=== PATIENT | male | born 1965 | race Caucasian/White ===

== ENCOUNTER 2016-06-22 19:55 | Emergency (ER) | payer MEDICARE, MEDICAID ==
[2016-06-22 20:01] VITALS: BP 154/72; PULSE 86; TEMP 97.7
[2016-06-22 20:12] VITALS: BMI 23.5
--- NOTE | 2016-06-22 20:15 | EDPRACDOC ---
- General Information Chief Complaint: Back Pain Stated Complaint: FELL C/O LT LOWER BACK PAIN SCHEDULED MRI TOMORROW Time Seen by Provider: 06/22/16 20:07 Information Source: Patient Mode Of Arrival: Car Home Medications: Home Medications Alprazolam [Xanax] 1 mg PO TID 08/30/15 Fluticasone/Vilanterol [Breo Ellipta 100-25 Mcg INH] 1 each IH DAILY 08/30/15 Roflumilast [Daliresp] 500 mcg PO DAILY 08/30/15 Umeclidinium Andrew [Incruse Ellipta] 62.5 mcg IH DAILY 08/30/15 Albuterol Sulfate [Ventolin Hfa] 1 - 2 puff INH Q4-6H PRN 08/31/15 Oxycodone HCl/Acetaminophen [Percocet 10-325 mg Tablet] 1 each PO .5 TIMES A DAY 08/31/15 Amoxicillin/Potassium Clav [Augmentin 875-125 Tablet] 1 each PO BID 09/20/15 Diazepam [Valium] 5 mg PO TID PRN #15 tablet 06/22/16 Prednisone [Deltasone, Orasone] 20 mg PO DAILY #20 tab 06/22/16 Allergies/Adverse Reactions: Allergies Allergy/AdvReac Type Severity Reaction Status Date / Time No Known Allergies Allergy Verified 08/30/15 23:40 - 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 Denies abd pain, n/v, loss of control bowel or bladder, leg weakness, perineum numbness. States tingling feeling in leg. Pain Location: Reports: Lumbar Pain Radiates To: Reports: Thigh, Buttock, Calf, Foot Pain Caused By: Reports: Spontaneous Circumstances: Reports: Unknown Relevant History: Reports: Chronic back pain Pain Severity: Reports: Moderate, Severe Pain Quality: Reports: Sharp, Stabbing Worsened By: Reports: Movement, Walking Associated Signs and Symptoms: Reports: None ED Past Medical History - History Reviewed Yes Nurses notes reviewed and agree except as marked - Patient Medical History Neurological History: Denies: Migraine Cardiac History: Reports: Hypertension, Stress Test (negative dobutamine stress test Jun 2014, EF 65%), Syncope Respiratory History: Reports: Asthma, COPD, Pneumonia, Emphysema Musculoskeletal History: Reports: Arthritis (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 Rotator cuff tear.), Osteoarthritis Psychological History: Reports: Anxiety (DUE TO BREATHING ), Substance Use Disorder (heavy consumption of narcotic analgesics for chronic pain disorder). Denies: Depression Systemic History: Reports: Diabetes. Denies: Cancer, Anemia, HIV, Lupus Surgical History: Reports: Other (Cervical spine surgery with fusion of C3-4 and also at C5. Elbow surgery.) - Family Medical History Denies: Hypertension, Diabetes, Cancer, Stroke, Cardiac Disorders - Social Medical History Smoking Status: Heavy tobacco smoker (5 or more cigarettes/day or daily pipe/ cigar) Social History: Reports: Substance Use Disorder (heavy consumption of narcotic analgesics for chronic pain disorder) ETOH: None EDM Review of Systems - Review of Systems Constitutional: No Symptoms Reported. negative: Fever, Chills, Weakness, Fatigue, Loss of Appetite Respiratory: No Symptoms Reported. negative: Cough, Brassy Cough, Barky Cough, Shortness of Breath, Wheezing, Hemoptysis Cardiovascular: No Symptoms Reported. negative: Chest Pain, Palpitations, Syncope, Edema, Orthopnea, PND, Skin Mottling, Cyanosis Gastrointestinal: No Symptoms Reported. negative: Pain, Constipation, Nausea, Vomiting, Diarrhea, Melena, Formula Intolerance Genitourinary: No Symptoms Reported. negative: Dysuria, Hematuria, Frequency, Discharge, Bleeding, Testicular Pain, Neurological: No Symptoms Reported. negative: Headache, Dizziness, Seizure, Numbness, Weakness, Speech Difficulty, Gait Difficulty Musculoskeletal: Back, Foot, Hip, Knee, Leg Integumentary: No Symptoms Reported. negative: Itching, Rash, Bruising, Wound Allergic/Immunologic: No Symptoms Reported. negative: Hives, Itching Hematologic: No Symptoms Reported. negative: Lymphadenopathy, Easy Bruising, Easy Bleeding Psychiatric: No Symptoms Reported. negative: Anxiety, Depression, Hallucinations, Insomnia, Suicidal - Physical Exam Constitutional: Alert Oriented to: Time, Person, Place Last recorded Vital Signs: Last Vital Signs Temp 97.7 F 06/22/16 20:11 Pulse 86 06/22/16 20:11 Resp 20 06/22/16 20:11 BP 154/72 06/22/16 20:11 Pulse Ox 92 06/22/16 20:11 Oxygen Pulse Oxygen Saturation 92 O2 Device Room Air Oxygen Flow Rate Fraction of Inspired Oxygen ( FIO2) - HEENT Head: Normal ( normocephalic) Neck: Normal (FROM, trachea at midline) - Respiratory/Cardiovascular Respiratory: Normal - CTA (BBS clear to auscultation without adventitious sounds ) Cardiovascular: Normal (RRR without murmur, gallop or rub) - GI Auscultation: Normal (NABS) Palpation: Normal (Soft,No rebound or guarding, non distended) Tenderness: Non tender Galvin's Sign: Negative - Musculoskeletal Back: Lumbar TTP Extremities: Normal (Normal tone, Pulses 2+ No cyanosis or edema, FROM) - Integumentary Skin: Normal, Warm, Dry Lymphatics: Normal (no adenopathy) - Neurologic Memory Impaired: Normal Motor Function: Normal (Normal tone, Pulses 2+ No cyanosis or edema, FROM) Mood Description: Normal Perception: Normal ED Back Exam - Neurologic Motor Deficit: None (strength 5/5, sensation nl) Reflexes: Normal (CN II-X11 intact) - Musculoskeletal Cervical: Normal Thoracic: Normal Lumbar: Tender Midline: Tender Paraspinous: Tender Straight Leg Raise: Positive (L) Pelvis: Normal - Differential Diagnosis DJD, HNP, Musculoskeletal pain, Strain - Additional Information 06/04/16 oxycodone 20mg #120 05/06/16 oxycodone 20mg #120 Decision Time to Discharge: 20:16 - Departure Disposition: Home Condition: Good Final Diagnosis: Lumbar radiculopathy Instructions: Lumbar Radiculopathy (ED) Education/Counseling Given To: Patient Education/Counseling Given Regarding: Diagnosis, Treatment, Follow Up Referrals: Anyi Arteaga MD [Primary Care Provider] - One Week Prescriptions: New Diazepam [Valium] 5 mg PO TID PRN #15 tablet PRN Reason: Muscle Spasms Prednisone [Deltasone, Orasone] 20 mg PO DAILY #20 tab No Action Roflumilast [Daliresp] 500 mcg PO DAILY Umeclidinium Andrew [Incruse Ellipta] 62.5 mcg IH DAILY Fluticasone/Vilanterol [Breo Ellipta 100-25 Mcg INH] 1 each IH DAILY Alprazolam [Xanax] 1 mg PO TID Oxycodone HCl/Acetaminophen [Percocet 10-325 mg Tablet] 1 each PO .5 TIMES A DAY Albuterol Sulfate [Ventolin Hfa] 1 - 2 puff INH Q4-6H PRN PRN Reason: Shortness Of Breath Amoxicillin/Potassium Clav [Augmentin 875-125 Tablet] 1 each PO BID Additional Instructions: Follow up with Personal MD for continued management of pain.
== END 2016-06-22 20:27 | disposition home or self-care (01) ==
LOC: EDMC 19:55
DX: M54.16 Radiculopathy, lumbar region (principal)
CPT/HCPCS: 99282